=== PATIENT | female | born 1975 | race Caucasian/White ===

== ENCOUNTER 2020-05-23 11:42 | Emergency (ER) | payer MEDICAID ==
[~2020-05-23] VITALS: Ht 167.6 cm; Wt 63.5 kg
[2020-05-23 11:51] VITALS: Ht 167.6 cm; Wt 63.5 kg
[2020-05-23 12:46] VITALS: BP 135/82
== END 2020-05-23 12:47 | disposition home or self-care (01) ==
LOC: ED 11:42
DX: S90.32XA Contusion of left foot, initial encounter (principal); W01.0XXA Fall on same level from slipping, tripping and stumbling without subsequent striking against object, initial encounter; Y93.89 Activity, other specified; Y92.89 Other specified places as the place of occurrence of the external cause; Y99.8 Other external cause status
CPT/HCPCS: 90715; J1885; Q0092